=== PATIENT | female | born 1960 | race Caucasian/White ===

== ENCOUNTER 2019-04-22 13:11 | Emergency (ER) | payer OTHER ==
[~2019-04-22] VITALS: Ht 152.4 cm; Wt 92.1 kg
[2019-04-22] MEDS ORDERED: LIDOCAINE VISC100 ML SWISH&SPIT (13:48)
[2019-04-22] MEDS ORDERED: NORCO 5-325 TA1 EAC1 PO (13:48)
[2019-04-22] MEDS ORDERED: AMOXICILLIN 50500 MG PO (13:48)
[2019-04-22 14:09] VITALS: BP 202/101
== END 2019-04-22 14:12 | disposition home or self-care (01) ==
LOC: M.ERS 13:11
DX: K04.7 Periapical abscess without sinus (principal); I10 Essential (primary) hypertension